=== PATIENT | female | born 1995 | race Caucasian/White ===

== ENCOUNTER 2024-05-09 17:00 | Outpatient (CLI) | payer OTHER ==
[2024-05-09 18:05] LABS: BILIRUBIN,URINE NEGATIVE (NEGATIVE); GLUCOSE, URINE (UA) NEGATIVE (NEGATIVE); KETONES,URINE (UA) NEGATIVE (NEGATIVE); LEUKOCYTE ESTERASE, URINE NEGATIVE (NEGATIVE); NITRITE,URINE NEGATIVE (NEGATIVE); OCCULT BLOOD,URINE NEGATIVE (NEGATIVE); PROTEIN,URINE NEGATIVE (NEGATIVE); UROBILINOGEN,URINE 0.2 (NORMAL) E.U./dL (NORMAL)
[2024-05-09 18:34] LABS: BACTERIA,URINE Rare /HPF (None Seen); CLARITY,URINE CLEAR (CLEAR); RBC,URINE None Seen /HPF (0-5); SQUAMOUS EPITHELIAL CELL,UR RARE Squamous (<= Few); WBC,URINE 0-3 /HPF (0-5)
== END 2024-05-09 17:01 | disposition home or self-care (01) ==
LOC: LAB.WC 17:00
PROVIDERS: ATTEND Nurse Practitioner Obstetrics & Gynecology
DX: Z34.90 Encounter for supervision of normal pregnancy, unspecified, unspecified trimester (principal)
CPT/HCPCS: 81001; 87086

== ENCOUNTER 2024-05-10 09:34 | Outpatient (CLI) | payer OTHER ==
[2024-05-10 11:56] LABS: BASOPHILS # (AUTO) 0.1 10^3/uL (0.0-0.1); BASOPHILS % (AUTO) 0.6 %; EOSINOPHILS # (AUTO) 0.1 10^3/uL (0.0-0.7); EOSINOPHILS % (AUTO) 1.1 %; HCT - HEMATOCRIT 41.6 % (37.0-47.0); HGB - HEMOGLOBIN 13.6 g/dL (12.0-16.0); LYMPHOCYTES # (AUTO) 1.8 10^3/uL (1.5-3.5); LYMPHOCYTES % (AUTO) 22.2 %; MEAN CORPUSCULAR HEMOGLOBIN 29.4 pg (27.0-31.0); MEAN CORPUSCULAR HGB CONC 32.7 g/dL (32.0-36.0); MEAN PLATELET VOLUME 10.3 fL (7.9-10.8); MONOCYTES # (AUTO) 0.5 10^3/uL (0.0-1.0); MONOCYTES % (AUTO) 6.5 %; NEUTROPHILS # (AUTO) 5.5 10^3/uL (1.5-6.6); NEUTROPHILS % (AUTO) 69.3 %; PLT - PLATELET COUNT 240 10^3/uL (130-450); RED BLOOD COUNT 4.62 10^6/uL (4.20-5.40); RED CELL DISTRIBUTION WIDTH 12.2 % (12.0-15.0); WHITE BLOOD COUNT 7.9 x10^3/uL (4.8-10.8)
[2024-05-11 01:08] LABS: HIV SCREEN 4TH GENERATION Non Reactive (Non Reactive)
[2024-05-11 03:11] LABS: HBsAG SCREEN Negative (Negative)
[2024-05-11 08:11] LABS: RPR Non Reactive (Non Reactive)
[2024-05-11 09:10] LABS: VARICELLA-ZOSTER AB IGG Reactive (Non Reactive)
[2024-05-11 23:08] LABS: HCV AB Non Reactive (Non Reactive)
== END 2024-05-10 09:35 | disposition home or self-care (01) ==
LOC: LAB.N 09:34
PROVIDERS: ATTEND Nurse Practitioner Obstetrics & Gynecology
DX: Z34.90 Encounter for supervision of normal pregnancy, unspecified, unspecified trimester (principal)
CPT/HCPCS: 36415; 85025; 86592; 86762; 86787; 86803; 86850; 86900; 86901; 87340; 87389

== ENCOUNTER 2024-12-20 07:45 | Inpatient (IN) ==
[2024-12-20] MEDS ORDERED: SODIUM CHLORIDE FLUSH 0.9% 10 ML SYRINGE IVP PRN (08:28)
[2024-12-20] MEDS ORDERED: OXYTOCIN/SODIUM CHLORIDE 500 ML IV PRN (08:28)
[2024-12-20] MEDS ORDERED: NIFEdipine 10 MG CAPSULE PO PRN (08:28)
[2024-12-20] MEDS ORDERED: hydrALAZINE INJ 20 MG/ML VIAL IVP PRN ×2 (08:28)
[2024-12-20] MEDS ORDERED: miSOPROStoL 200 MCG TABLET BC PRN (08:28)
[2024-12-20] MEDS ORDERED: CARBOPROST TROMETHAMINE 250 MCG/ML VIAL IM PRN (08:28)
[2024-12-20] MEDS ORDERED: OXYTOCIN 10 UNIT/ML VIAL IM PRN (08:28)
[2024-12-20] MEDS ORDERED: TRANEXAMIC ACID IN NACL 1,000 MG/100 ML BAG IV PRN (08:28)
[2024-12-20] MEDS ORDERED: LACTATED RINGERS 1,000 ML IV PRN (08:28)
[2024-12-20] MEDS ORDERED: LABETALOL 20 MG/4 ML SYRINGE IVP PRN ×3 (08:28)
[2024-12-20] MEDS ORDERED: METHYLERGONOVINE 0.2 MG/ML VIAL IM PRN (08:28)
--- NOTE | 2024-12-20 08:33 | HISTORY & PHYSICAL EXAMINATION ---
Admit History Smoking Status: Never smoker Other Maternal History Other Maternal History: HPI: This 29 yo @ 39+4 weeks by LMP and confirmed by 9+0 week ultrasound presents for elective induction of labor at term. Her was able to fly back from [facility] for the of their first baby and is now supportive at the bedside. Her cervix was checked in the clinic on Wednesday and she was closed/thick/high/posterior/soft/vertex/intact. She does not feel that she's been lee and declines repeat exam after utilization of shared decision making. RIZO SCORE:2. We reviewed management options at length, reviewed our plan of care is for admission for induction of labor to begin with pre-induction cervical ripening (50mcg BC q 4 hours). Reviewed that risks of labor include but are not limited to section, prolonged labor, vacuum extraction, episotomy, hemorrhage, and additional risks exist re: prolonged second stage related to extraction. Reviewed back up OBGYN (today Dr. Cody) is available for consultations, emergency interventions and transfer of care if indicted. She has been a patient of [facility] for the duration of her which has remained uncomplicated. 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 ROS: No Headache, visual changes or right upper quadrant abdominal pain. Denie s significant N/V. Denies urinary urgency or dysuria. All other symptoms reviewed and were negative except per HPI. In the event of an emergency, accepts the administration of blood products. Recent BP: 130/70 Labs: pending Last u/s EFW:08/15/2025 EFW 84% Total maternal weight gain: 42# OB Hx: G1: Current LMP: 03/18/2024 TERRY by LMP: 12/23/2024 US: 05/20/2024 @ 9.0wks c/w dating (TERRY by U/S 12/23/2024) Final TERRY: 12/23/2024 Medical Hx: Kidney Stone Surgical Hx: [place] teeth Social Hx: Monogamous with male partner (Balbir Mohsen Colin) Denies current use of alcohol or tobacco, marijuana or other recreational drugs. Reports that she is safe in current relationship. 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 [place] Allergies: NKDA RX PNV, Valacyclovair Blood type: O positive Antibody Screen: negative CBC: PLT 240 HCT 41.6 HGB 13.6 RUB: immune VZV: immune HBsAg: neg HepC: NR RPR: NR HIV: NR Flu: 06/06/2024 Covid: x3, declines booster PAP: GC/CT: neg HSV: denies in self and partner Genetic testing: NIPT Negative; AFP FAS: 08/14/2024 Placenta: anterior Cord: 3VC SHANNON: 12.2cm EFW: 474g 50gm OGCT: 91 3HR GTT: TDAP: 10/03/2024 Breast Pump: 10/03/2024 RSV: Antibody screen: CBC: PLT 211; 37.9/12.3 RPR: NR GBS: 12/04/2024 Negative Delivery plan: MOD: Anticipate PP BC: Physical exam: Normocephalic, atraumatic Lungs No increased work of breathing Abdomen gravid, soft, nontender. EFW 3700 FHR baseline 130, moderate variability, + accelerations, no decelerations Contractions irregular, soft resting tone SVE closed/thick/high/posterior/soft/intact/vertex Bilateral LE's no edema Mood is good. Assessment: 29 yo @ 39+4 weeks gestation by 9+0 wk U/S Elevtice induction of labor at term FHR 130 Cat I GBS NEG Plan: Admit to [facility] for preinduction cervical ripening. misoprostol 50mcg BC q 4 hours, up to 6 maximum doses Continuous monitoring. Intermittent monitoring as appropriate by unit policy Jacuzzi PRN. Nitrous oxide PRN. Epidural PRN Maternal Request. Anticipate . Meds/Allgy Home Medications Ambulatory Orders Medication Instructions Recorded Confirmed vits no.126-ferrous fum tab PO 06/06/2412/18 28 mg iron-folic acid 800 mcg tablet (Classic ) valacyclovir 500 mg tablet 500 mg PO BID 6 weeks #84 t abs 10/02/24 12/18/24 dicloxacillin 500 mg capsule 500 mg PO .four times per day 12/15/24 12/18/24 days #40 caps Allergies Allergies Allergy/AdvReac Type Severity Reaction Status Date / Time No Known Drug Allergies Allergy Verified 12/18/24 09:37 PFSH Active Problems All Active Problems (Updated 12/20/24 @ 08:29 by TERRI Rush) 39 weeks gestation of (Acute) HSV infection (Acute) Supervision of normal (Acute) Medical History Medical History (Updated 12/20/24 @ 08:29 by TERRI Rush) Family history of Down syndrome maternal great aunt Kidney stone Surgical History Surgical History (Updated 06/06/24 @ 11:05 by Megha Dickson MA) [place] teeth removed Family History Family History (Updated 06/06/24 @ 11:08 by Megha Dickson MA) Mother Thyroid disorder Sister Thyroid disorder Mother Basal cell carcinoma Father Basal cell carcinoma Social History Social History (Updated 06/06/24 @ 11:03 by Megha Dickson MA) Smoking Status: Never smoker Do you dip or chew tobacco?: No ETOH Use: None Substance Use: denies use Plan for Labor Plan For Labor I expect patient to be DC'd or transferred within 96 hours.: Yes
[2024-12-20 08:47] LABS: BASOPHILS % (AUTO) 0.4 %; EOSINOPHILS # (AUTO) 0.1 10^3/uL (0.0-0.7); EOSINOPHILS % (AUTO) 1.8 %; HCT - HEMATOCRIT 38.6 % (37.0-47.0); HGB - HEMOGLOBIN 12.9 g/dL (12.0-16.0); LYMPHOCYTES # (AUTO) 2.1 10^3/uL (1.5-3.5); LYMPHOCYTES % (AUTO) 27.1 %; MEAN CORPUSCULAR HEMOGLOBIN 29.1 pg (27.0-31.0); MEAN CORPUSCULAR HGB CONC 33.4 g/dL (32.0-36.0); MEAN CORPUSCULAR VOLUME 86.9 fL (81.0-99.0); MEAN PLATELET VOLUME 12.5 fL (7.9-10.8); MONOCYTES # (AUTO) 0.5 10^3/uL (0.0-1.0); MONOCYTES % (AUTO) 6.6 %; NEUTROPHILS % (AUTO) 63.7 %; PLT - PLATELET COUNT 184 10^3/uL (130-450); RED BLOOD COUNT 4.44 10^6/uL (4.20-5.40); RED CELL DISTRIBUTION WIDTH 13.7 % (12.0-15.0); WHITE BLOOD COUNT 7.9 x10^3/uL (4.8-10.8)
[2024-12-20] MEDS: miSOPROStoL 100 MCG TABLET BC SCH (08:49)
[2024-12-20] MEDS: SODIUM CHLORIDE FLUSH 0.9% 10 ML SYRINGE IVP SCH (09:00)
--- NOTE | 2024-12-20 13:18 | PHARMACY PROGRESS NOTE ---
Best Possible Medication History Admit Date and Time: 12/20/24 [id number] Home Medications Medication Instructions Recorded Confirmed Type vits no.126-ferrous fum 1 tab PO DAILY 12/20/24 History 28 mg iron-folic acid 800 mcg tablet (Classic ) valacyclovir 500 mg tablet 500 mg PO BID 6 weeks #84 t abs 10/02/24 12/20/24 Rx Processed by: Pharmacy Medications reviewed in ED?: No Medication History completed: Yes Patient Interview: Completed Secondary Source(s): Pharmacy records [facility] Statement: As the person ultimately responsible for medication therapy, providers are able to order a medication from an existing home medication list in [facility] via the "Reconcile Routine" prior to Confirmation of that medication by support technician. Such practice is discouraged except when the physician, in their clinical judgment, deems that a medical need exists for a medication without regard to previous use.
--- NOTE | 2024-12-20 18:53 | PROVIDER PROGRESS NOTE ---
Labor Progress Note Labor Progress Note Labor Progress Note/Additional Text: S: Talking through contractions but becoming more uncomfortable. Her is supportive at the bedside. O: FHR 130s, moderate variability SVE 1/thick/posterior/ vertex. A: 29yo @ 39+4wks gestation by 9wk U/S s/p misoprostol 50mcg BC x2 doses Contractions q 1.5-4 minutes, feeling them but able to talk through. GBS negative P: Hold next dose of misoprostol until contractions space out or feels less discomfort with contractions Consider next dose 25mcg vs 50mcg of misoprostol If minimal cervical change by tomorrow morning, consider CRB Continue to encourage ambulation as desired/tolerated Support her desire for pain intervention as desired.
--- NOTE | 2024-12-21 08:14 | PROVIDER PROGRESS NOTE ---
Labor Progress Note Labor Progress Note Labor Progress Note/Additional Text: S: Doing well, eating breakfast. Feeling tightening and cramping with contractions, but not specific pain. Overall, comfortable. Rating 3/10vps. supportive at bedside. O: FHR 125, moderate variability, + acclerations, no concerning decelerations S/P #5 dose of misoprostol. Dosage changed from 50mcg q 4 hours to 25mcg q 4 hours as contractions have been 2-4 minutes and palpate moderately. SVE 2/70/-3/mid/soft/vertex. A: 29yo @ 39+5 wks gestation by 9wk U/S Elective IOL at 39+4 wks gestation GBS negative P: give #6 dose of misprostol. Repeat SVE at noon, Consider CRB, membrane sweep and pitocin augmentation at next huddle at 1300.
[2024-12-21] MEDS: valACYclovir 500 MG TABLET PO SCH (08:39)
--- NOTE | 2024-12-21 13:27 | PROVIDER PROGRESS NOTE ---
Labor Progress Note Labor Progress Note Labor Progress Note/Additional Text: Doing well, overall comfortable. at bedside and well supported by RN team. Contractions q 2-5, moderate intensity. SVE 2.5/90/-2/mid/soft, membrane sweep, bulging bag of fluid. Discussed management options. Open to pitocin augme ntation. Discussed increased intensity of contractions with pitocin as well as pain management options. Pitocin augmentation per unit protocol with contraction frequency goal of q 2-3 minutes and increased intensity.
[2024-12-21] MEDS: LACTATED RINGERS 1,000 ML IV PRN (13:49)
[2024-12-21] MEDS: OXYTOCIN/SODIUM CHLORIDE 500 ML IV SCH (13:50)
[2024-12-21] MEDS ORDERED: ROPIVACAINE 0.2% 200 MG/100 ML BAG EP ONE (18:13)
--- NOTE | 2024-12-21 18:28 | PROVIDER PROGRESS NOTE ---
Labor Progress Note Labor Progress Note Labor Progress Note/Additional Text: S: Breathing and crying through contractions which have increased in intensity since initiating pitocin. Tearful, didn't want an epidural but after cervical exam, doesn't feel that she can tolerate labor for a further extended period of time. Reassured that she is doing excellent with her current breathing and movement through contractions. Extremely well supported by AMELIE Coelho. She requests an epidural for pain management and anesthesia has been notified. Her is supportive at the bedside and providing counter-pressure and ongoing encouragement and supportive of her wishes. O: FHR 130, moderate variability, SVE X, vertex. BP ranges from 103/68 - 140/79, mostly 120-130/70's Denies headache, changes to vision or RUQ pain. T 37.0 A: 29yo @ 39+5wks gestation by 9wk U/S Early labor, occasional coupling. RN has been working with her to do lunges and positional changes however with increasing discomfort, she has been less able to tolerate extreme positions for periods of time. 3.5/100/-2/soft/mid postition. Elective induction of labor at term GBS negative P: Anesthesia notified for placement of epidural for pain management. Contineu continuous monitoring now. Continue to titrate pitocin per unit protocol Will plan to release bag of water once comfortable with epidural. Will encouraged rotation in bed on peanut ball after patient is comfortable with epidural. Anticipate .
[2024-12-21] MEDS ORDERED: NALOXONE 0.4 MG/ML VIAL IVP PRN (19:15)
[2024-12-21] MEDS ORDERED: NALBUPHINE 10 MG/ML AMP IVP PRN (19:15)
[2024-12-21] MEDS ORDERED: diphenhydrAMINE INJ 50 MG/ML VIAL IVP PRN (19:15)
[2024-12-21] MEDS ORDERED: ePHEDrine 50 MG/ML VIAL IVP PRN (19:15)
[2024-12-21] MEDS ORDERED: METOCLOPRAMIDE 10 MG/2 ML VIAL IVP PRN (19:15)
--- NOTE | 2024-12-21 19:18 | ANESTHESIA PROCEDURE NOTE ---
Pre-Anesthesia VS, & Labs Diagnosis Surgical Diagnosis:: labor induction Procedure Procedure: labor epidural Vitals Vital Signs: Temp Pulse Resp BP Pulse Ox 37 C 72 16 121/80 99 12/21/24 07:11 12/21/24 07:11 12/21/24 07:11 12/21/24 07:11 12/21/24 07:11 NPO NPO: Other Is Patient ?: Yes Lab Results Current Lab Results: Laboratory Tests 12/20/24 09:13: Blood Type O POSITIVE, Antibody Screen NEGATIVE 12/20/24 08:30: WBC 7.9, RBC 4.44, Hgb 12.9, Hct 38.6, MCV 86.9, MCH 29.1, MCHC 33.4, RDW 13.7, Plt Count 184, MPV 12.5 H, Neut # (Auto) 5.0, Lymph # (Auto) 2.1, Powell # (Auto) 0.5, Eos # (Auto) 0.1, Baso # (Auto) 0.0, Absolute Nucleated RBC 0.00, Nucleated RBC % 0.0 12/20/24 08:30 Meds/Allgy Home Medications Ambulatory Orders Medication Instructions Recorded Confirmed vits no.126-ferrous fum 1 tab PO DAILY 12/20/24 28 mg iron-folic acid 800 mcg tablet (Classic ) valacyclovir 500 mg tablet 500 mg PO BID 6 weeks #84 t abs 10/02/24 12/20/24 Allergies Allergies Allergy/AdvReac Type Severity Reaction Status Date / Time No Known Drug Allergies Allergy Verified 12/18/24 09:37 PFSH Active Problems All Active Problems (Updated 12/20/24 @ 08:29 by TERRI Rush) 39 weeks gestation of (Acute) HSV infection (Acute) Supervision of normal (Acute) Medical History Medical History (Updated 12/20/24 @ 08:29 by TERRI Rush) Family history of Down syndrome maternal great aunt Kidney stone Surgical History Surgical History (Updated 06/06/24 @ 11:05 by Megha Dickson MA) [place] teeth removed Family History Family History (Updated 06/06/24 @ 11:08 by Megha Dickson MA) Mother Thyroid disorder Sister Thyroid disorder Mother Basal cell carcinoma Father Basal cell carcinoma Social History Social History (Updated 06/06/24 @ 11:03 by Megha Dickson MA) Smoking Status: Never smoker Do you dip or chew tobacco?: No ETOH Use: None Substance Use: denies use Anesthesia Exam (Expanded) Exam General: Alert, Oriented x3 and Moderate distress Dental: WNL Mouth Opening: Greater than 4 Fingerbreadths Neck Mobility: Normal Mallampati classification: II Thyromental Distance: greater than 6 cm Respiratory: Lungs clear Cardiovascular: Regular rate Plan Plan Anesthesia Type: Epidural Consent for Procedure(s) Verified and Reviewed: Yes Code Status: Attempt Resuscitation ASA Classification ASA classification: 2-Mild systemic disease Is this case an emergency?: No
[2024-12-22] MEDS: ONDANSETRON 4 MG/2 ML VIAL IVP PRN (00:18)
[2024-12-22] MEDS: LACTATED RINGERS 500 ML IV ONE (00:43)
[2024-12-22] MEDS: ROPIVACAINE 0.2% 200 MG/100 ML BAG EP PRN (02:08)
[2024-12-22] MEDS ORDERED: MINERAL OIL LIGHT 10 ML ONE (05:12)
[2024-12-22] MEDS: MINERAL OIL LIGHT 10 ML MC ONE (05:15)
[2024-12-22] MEDS ORDERED: fentaNYL 100 MCG/2 ML VIAL ONE (06:40)
[2024-12-22] MEDS: lidocaine 1% 20 ML MDV ID PRN (06:46)
[2024-12-22] MEDS: fentaNYL 100 MCG/2 ML VIAL IVP PRN (06:47)
[2024-12-22] MEDS ORDERED: LABETALOL 20 MG/4 ML SYRINGE IVP PRN ×2 (07:31)
[2024-12-22] MEDS ORDERED: NALOXONE 0.4 MG/ML VIAL IVP PRN (07:31)
[2024-12-22] MEDS ORDERED: LABETALOL 5 MG/1 ML 20 ML MDV IVP PRN (07:31)
[2024-12-22] MEDS ORDERED: hydrALAZINE INJ 20 MG/ML VIAL IVP PRN ×2 (07:31)
[2024-12-22] MEDS ORDERED: NIFEdipine 10 MG CAPSULE PO PRN (07:31)
[2024-12-22] MEDS ORDERED: OXYTOCIN/SODIUM CHLORIDE 500 ML IV PRN (07:31)
[2024-12-22] MEDS ORDERED: SIMETHICONE CHEW 80 MG TABLET PO PRN (07:31)
--- NOTE | 2024-12-22 07:31 | DELIVERY NOTE ---
Delivery Note Delivery Comments (Free Text/Narrative) Delivery Comments (Free Text/Narrative): This 29 -year-old, @ 39+4 weeks gestation by 9 week ultrasound/ LMP presented 12/20/2024 @ 0800 for elective term induction of labor. Cervix was 1cm/thick/high/soft/posterior/Vertex presentation by exam. GBS negative. Misoprostol x6 doses and pitocin maximum infusion of 14mu/min. FHR pattern demonstrated 135-145 baseline in a category I prior to second stage. Normal labor course. Epidural placed upon maternal request. SROM upon SVE 12/21/2024 @ 1917. She then progressed to complete/complete 12/22/2024 @ 0419 and ready to deliver. Just prior to pushing onset epidural catheter was found to be broken off at the filter, anesthesia aware. She had decreasing epidural coverage as pushing progreassed. Second stage began @ 0450. : Normal spontaneous vaginal delivery of a viable female infant on 12/22/2024 @ 0620. No nuchal cord. The was placed on maternal abdomen, stimulated, dried and placed skin to skin. Apgars 8 & 9 @ 1 & 5 minutes. The umbilical cord was allowed to stop pulsating at which time it was doubly clamped by delivering provider and cut by FOB. 3VC. Cord blood was obtained. Fundal massage and gently cord traction applied for active management of the third stage, placenta delivered spontaneously and intact and appeared normal @ 0631. EBL 150cc. Placenta was not sent to pathology. Pitocin administered via IV for hemostasis and allowed to run freely. Uterine massage was performed until uterus was deemed firm. weight pending at this time. Inspection of the perineum noted an first-degree midline laceration with an extension to midvaginal vault. The laceration was repaired under epidural anesthesia and topical 1% lidocaine with running 3-0 vicryl rapide, repaired in standards fashion under sterile conditions. Upon re-inspection the patient was hemostatic. Uterus again massaged and found to be firm. Needle and sponge counts were correct. Uterine fundus firm and there is no excessive bleeding. Tissues well approximated. Skin to skin initiated. Family bonding well. Both mother and baby are in stable condition.
[2024-12-22] MEDS: ACETAMINOPHEN 500 MG TABLET PO PRN (08:00)
[2024-12-22] MEDS: IBUPROFEN 600 MG TABLET PO PRN (08:01)
[2024-12-22] MEDS: DOCUSATE SODIUM 100 MG CAPSULE PO SCH (23:03)
--- NOTE | 2024-12-23 11:34 | PROVIDER PROGRESS NOTE ---
Subjective Subjective Subjective: S: Bonding well with baby. without difficulty. Bleeding decreased and is light. Pain is well controlled with oral medications. She is urinating without difficulty. Had a normal BM without pain. is supportive at the bedside. O: Heart RRR w/o M/G/R, lungs CTAB, abdomen soft and nontender with fundus firm at U, perineum intact, light lochia rubra, bilateral LE's trace edema A: 29yo -->P1 PPD#1 s/p TSVD viable female Normal recovery P: Continue routine care and medications. Evaluate for discharge home tomorrow Current Medications Current Medications Current Medications: Current Medications Generic Name Dose Route Start Last Admin Trade Name Freq PRN Reason Stop Dose Admin Acetaminophen 1,000 mg 12/22/24 07:31 12/23/24 10:23 Acetaminophen 500 Mg Tablet PO 1,000 mg Q8HR PRN Administration Mild Pain or Fever>38C(100.4F) Carboprost Tromethamine 250 mcg 12/20/24 08:28 Carboprost Tromethamine 250 Mcg/Ml Vial IM 12/25/24 08:29 Q15M PRN Step 4: Hemorrhage protocol Diphenhydramine HCl 12.5 - 25 mg 12/21/24 19:15 Diphenhydramine Inj 50 Mg/Ml Vial IVP Q6HR PRN ITCHING Docusate Sodium 100 mg 12/22/24 09:00 12/23/24 10:24 Docusate Sodium 100 Mg Capsule PO 100 mg BID STEPHANIE Administration Fentanyl 50 mcg 12/22/24 06:48 12/22/24 06:47 Fentanyl 100 Mcg/2 Ml Vial IVP 50 mcg Q1HR PRN Administration Severe Pain (Level 7-10) Hydralazine HCl 5 - 20 mg 12/20/24 08:28 Hydralazine Inj 20 Mg/Ml Vial IVP Q20M PRN SBP >160 or DBP >110 Protocol Hydralazine HCl 10 mg 12/20/24 08:28 Hydralazine Inj 20 Mg/Ml Vial IVP 12/25/24 08:29 .ONCE PRN Step 9 of Labetalol protocol Protocol Hydralazine HCl 10 mg 12/22/24 07:31 Hydralazine Inj 20 Mg/Ml Vial IVP .ONCE PRN SBP> or= 160 OR DBP> or= 110 Protocol Hydralazine HCl 5 - 10 mg 12/22/24 07:31 Hydralazine Inj 20 Mg/Ml Vial IVP Q20M PRN SBP >=160 and/or DBP >=110 Protocol Lactated Ringer's 1,000 mls @ 100 mls/hr 12/20/24 08:28 12/21/24 19:01 Lr IV 100 mls/hr .Q10H PRN Administration Save for active labor Oxytocin/Sodium Chloride 500 mls @ 999 mls/hr 12/20/24 08:28 Pitocin/Sodium Chloride IV 12/25/24 08:29 PRN PRN POST- HEMORR PREVENTION Protocol 999 MILLIUNIT/MIN Tranexamic Acid 1,000 mg in 100 mls @ 600 mls/hr 12/20/24 08:28 Tranexamic 1,000 Mg/100ml-Nacl IV 12/25/24 08:29 .ONCE PRN EBL >1200mL and within 3hr Lactated Ringer's 1,000 mls @ 999 mls/hr 12/20/24 08:28 Lr IV PRN PRN distress Oxytocin/Sodium Chloride 500 mls @ 999 mls/hr 12/22/24 07:31 Pitocin/Sodium Chloride IV PRN PRN POST- HEMORR PREVENTION Protocol 999 MILLIUNIT/MIN Ibuprofen 600 mg 12/22/24 07:31 12/23/24 02:39 Ibuprofen 600 Mg Tablet PO 600 mg Q6HR PRN Administration Moderate Pain (Level 4-6) Labetalol HCl 20 - 80 mg 12/20/24 08:28 Labetalol 20 Mg/4 Ml Syringe IVP Q10M PRN SBP >160 or DBP >110 Protocol Labetalol HCl 20 mg 12/20/24 08:28 Labetalol 20 Mg/4 Ml Syringe IVP 12/25/24 08:29 .ONCE PRN Step 9 of nifedipine protocol Protocol Labetalol HCl 40 mg 12/20/24 08:28 Labetalol 20 Mg/4 Ml Syringe IVP 12/25/24 08:29 .ONCE PRN Step 9 of hydrALAZine protocol Protocol Labetalol HCl 20 - 80 mg 12/22/24 07:31 Labetalol 5 Mg/1 Ml 20 Ml Mdv IVP Q10M PRN SBP> or= 160 OR DBP> or= 110 Protocol Labetalol HCl 20 - 40 mg 12/22/24 07:31 Labetalol 20 Mg/4 Ml Syringe IVP Q10M PRN SBP> or= 160 OR DBP> or= 110 Protocol Labetalol HCl 20 mg 12/22/24 07:31 Labetalol 20 Mg/4 Ml Syringe IVP .ONCE PRN SBP >=160 and/or DBP >=110 Protocol Lidocaine HCl 20 ml 12/20/24 08:28 12/22/24 06:46 Lidocaine 1% 20 Ml Mdv ID 12/25/24 08:29 20 ml .ONCE PRN Administration PERINEAL REPAIR Methylergonovine Maleate 0.2 mg 12/20/24 08:28 Methylergonovine 0.2 Mg/Ml Vial IM 12/25/24 08:29 .ONCE PRN Step 2: Hemorrhage protocol Metoclopramide HCl 10 mg 12/21/24 19:15 Metoclopramide 10 Mg/2 Ml Vial IVP Q6HR PRN Nausea / Vomiting Misoprostol 800 mcg 12/20/24 08:28 Misoprostol 200 Mcg Tablet BC 12/25/24 08:29 .ONCE PRN Step 3: Hemorrhage protocol Nalbuphine HCl 2.5 - 5 mg 12/21/24 19:15 Nalbuphine 10 Mg/Ml Amp IVP Q4H PRN ITCHING Naloxone HCl 0.1 mg 12/21/24 19:15 Naloxone 0.4 Mg/Ml Vial IVP Q2M PRN RR<8 Naloxone HCl 0.4 mg 12/22/24 07:31 Naloxone 0.4 Mg/Ml Vial IVP .ONCE PRN Opioid Overdose Nifedipine 10 - 20 mg 12/20/24 08:28 Nifedipine 10 Mg Capsule PO Q20M PRN SBP >160 or DBP >110 Protocol Nifedipine 10 - 20 mg 12/22/24 07:31 Nifedipine 10 Mg Capsule PO Q20M PRN SBP >=160 and/or DBP >=110 Protocol Ondansetron HCl 4 mg 12/21/24 19:15 12/22/24 00:18 Ondansetron 4 Mg/2 Ml Vial IVP 4 mg Q6HR PRN Administration Nausea / Vomiting Oxytocin 10 unit 12/20/24 08:28 Oxytocin 10 Unit/Ml Vial IM 12/25/24 08:29 .ONCE PRN Step one: If no IV access Simethicone 80 mg 12/22/24 07:31 Simethicone Chew 80 Mg Tablet PO TID PRN Gas Sodium Chloride 10 ml 12/20/24 09:00 12/22/24 00:44 Sodium Chloride Flush 0.9% 10 Ml Syringe IVP Not Given 0100,0900,1700 STEPHANIE Sodium Chloride 10 ml 12/20/24 08:28 Sodium Chloride Flush 0.9% 10 Ml Syringe IVP PRN PRN NEEDED PER PROVIDER ORDERS Objective Vital Signs/Intake & Output Vital Signs: Vital Signs x48h Pulse BP 12/23/24 05:17 71 120/71 Intake & Output: Intake & Output 12/20/24 12/21/24 12/22/24 12/23/24 23:59 23:59 23:59 23:59 Intake Total 1100 / 1100 734 / 734 486 / 486 Output Total 600 / 600 Balance 1100 / 1100 734 / 734 -114 / -114 Weight (kg) 190 lb 0.016 oz Lab Results 12/20/24 08:30
[2024-12-24 08:42] VITALS: BP 134/78; TEMP 98.2; O2SAT 98
--- NOTE | 2024-12-24 11:15 | Discharge Summary ---
Discharge Summary HOSPITAL COURSE Hospital Course: Date of Admission: 12/20/2024 Date of Discharge: 12/24/2024 Diagnosis on Admission: 1. 29 yo @ 39+4 weeks gestation by 9+0 wk U/S 2. Elective induction of labor at term 3. FHR 130 Cat I 4. GBS NEG Diagnosis on Discharge: 1. 29yo PPD#2 s/p TSVD viable female infant 2. 3. Normal recovery Brief History: She is a patient of [facility] who presented on for elective induction of labor. Cervix was 1/thick/high and vertex with intact membranes. She recieved 6 doses of 25mcg BC misoprostol for pre-induction cervical ripening followed by pitocin for induciton of labor with a maximum infusion rate of 14mU/min. Epidural was placed per maternal request. SROM occurred on 12/21/2024 @ 1917 and was noted to be a moderate amount of clear fluid. She spontaneously progressed to deliver a viable female infant on 12/22/2024 @ 0620. Perineum was found to have a 1st degree laceration which was repaired using a 3-[address]-1 needle in standard fashion and under sterile conditions. Apgars were 8/9 at 1 and 5 minutes respectively. EBL 150 mL. She has been doing well in her course. She is ambulating and tolerating a regular diet. She is urinating without difficulty and her lochia is normal. Her pain is well controlled with oral medications. She will be discharged home today on day #2 with instructions to continue taking her vitamin while and to continue taking Ibuprofen and Tylenol over the counter as needed for pain management. She intends to follow up with myself at [facility] in 1 week for routine visit or sooner if needed. She has been given precautions to call if she has any worsening fevers, chills, abdominal pain, increased vaginal bleeding or foul smelling vaginal lochia. Physical Exam: Normocephalic, atraumatic. Heart RRR w/o M/G/R, lungs CTAB, abdomen soft and nontender with fundus firm at U-2, perineum intact, light lochia rubra, bilateral LE's no edema. Mood is good. ALLERGIES Allergies Allergy/AdvReac Type Severity Reaction Status Date / Time No Known Drug Allergies Allergy Verified 12/18/24 09:37 MEDICATIONS Ambulatory Orders Medication Instructions Recorded Confirmed vits no.126-ferrous fum 1 tab PO DAILY 12/20/24 28 mg iron-folic acid 800 mcg tablet (Classic ) valacyclovir 500 mg tablet 500 mg PO BID 6 weeks #84 t abs 10/02/24 12/20/24 PHYSICAL EXAM AT DISCHARGE Vital Signs: Vital Signs x48h Temp Pulse Resp BP Pulse Ox 12/24/24 08:30 98.2 F 74 17 134/78 H 98 LABS 12/20/24 08:30 Discharge Plan Discharge Patient Disposition: 01 Home, Self Care Prescriptions: Continued valacyclovir 500 mg tablet 500 mg PO BID 42 Days Qty: 84 1RF Rx Instructions: Take twice a day for HSV suppression in Classic 28 mg iron- 800 mcg tablet 1 tab PO DAILY Print Language: Thai Patient Instructions: Vaginal After, Self Care
--- NOTE | 2024-12-24 12:18 | Labor Flowsheet ---
Labor Flowsheet Datetime Report Generated by CPN: 12/24/2024 12:18 Datetime: 12/24/2024 08:20 VITAL SIGNS NBP Sys/Swathi/Mean (mmHg): 134 : 78 : 91 Pulse: 72 Datetime: 12/22/2024 08:30 Stage of : Recovery Datetime: 12/22/2024 08:00 Temperature (C): 37.1 Datetime: 12/22/2024 07:15 Respirations: 20 Datetime: 12/22/2024 07:00 PAIN Pain Scale: 3 Pain Presence: Intermittent Pain Type: Cramping Pain Location: Abdomen; Perineum Pain Goal: 4 Pain Relief Measures: Pain Medication Given; Comfort Measures Datetime: 12/22/2024 06:31 Stage 2 Comments: Placenta @ 0631 Datetime: 12/22/2024 06:20 STAGE 2 Pushing: Coached on Pushing; Urge to Push Pushing Position: Pushing with Contractions; Pushing Lithotomy Pushing Progress: Descent with Pushing; with Pushing; Pushing Effectively with Contractions Datetime: 12/22/2024 06:17 UTERINE ACTIVITY Monitor Mode: External Frequency (min): 1-2 Quality: Strong Duration (sec): 50-70 Pattern: Normal: <= 5 Contractions in 10 Minutes Resting Tone (Palpate): Relaxed FHR Baseline Rate : 150 Variability: Moderate 6-25 bpm Accelerations: 15X15 Decelerations: Variable Category: Category II Datetime: 12/22/2024 06:00 ASSESSMENT A Monitor Mode: Telemetry LaborFlag: Labor Datetime: 12/22/2024 05:50 Membranes Ruptured Date/Time: 12/21/2024 19:17 Amniotic Fluid Odor: Normal Cervical Ripening Agents: Cytotec @ Datetime: 12/22/2024 04:46 Communication Comments: pushing starts Datetime: 12/22/2024 04:40 Anesthesia Comments: Noticed that epidural line got snapped off. Pt unaware. [employer] called, stated no way to fix other than to replace. pt 10cm and ready to push. Epidural removed. Datetime: 12/22/2024 04:19 VAGINAL EXAM Dilatation (cm): 10.0 Effacement (%): 100 Station: 2 Exam by: Lauren RN Datetime: 12/22/2024 03:09 SpO2 (%): 98 Datetime: 12/22/2024 03:00 Temperature Route: Oral FHR Baseline Changes: No Baseline Change Datetime: 12/22/2024 02:00 Pitocin Checklist: At Least 1 Acceleration of 15 bpm x 15 Seconds in 30 Minutes or Adequate Variability; No More than 1 Late Deceleration Occurred in Past 30 Minutes; No More than 2 Variable Decelerations > 60 Seconds in Duration and decreasing >60 bpm in 30 minutes; No More than 5 Uterine Contractions in 10 Minutes for any 20 Minute Interval; Uterus Palpates Soft between Contractions Datetime: 12/21/2024 23:37 Patient Care Comments: Pt had copious amount of emesis on self and in bed. complete bedding change and got pt washed up and clothes changed. zofran administered Datetime: 12/21/2024 19:35 I/O Interventions: Yang Cath Inserted Datetime: 12/21/2024 19:17 Membrane Status: Ruptured Membranes Rupture Method: Spontaneous Amniotic Fluid Color: Clear Amniotic Fluid Amount: Moderate Datetime: 12/21/2024 18:34 PATIENT CARE Patient Position/Activity: Left Tilt Datetime: 12/21/2024 18:25 ANESTHESIA Anesthesia Plans: Epidural Datetime: 12/21/2024 18:24 Epidural Procedure: Cath Placed Datetime: 12/21/2024 18:20 PROCEDURE TIME OUT Procedure Verify: Accurate Procedure Consent Form; Agreement on Procedure to be Done; Correct Patient Position Epidural Positioning: Sitting Datetime: 12/21/2024 18:00 Monitor Interventions for UA: Ayden Adjusted Datetime: 12/21/2024 17:50 Cervix, Consistency: Soft Cervix, Position: Midposition Datetime: 12/21/2024 16:26 MEDICATIONS Pitocin (milliunits): Increased to @ 5 Datetime: 12/21/2024 15:36 COMMUNICATION Communication: RN at Bedside Datetime: 12/21/2024 15:24 Monitor Interventions for FHR: Ultrasound Adjusted Datetime: 12/21/2024 13:31 Pain Coping: Breathing Through Contractions; Declines Medication or Epidural Comfort Measures: Breathing/Relaxation; Family Support Datetime: 12/21/2024 12:59 Vaginal Bleeding: Normal Show Vaginal Exam Comments: buldgy bag Datetime: 12/21/2024 11:00 MATERNAL ASSESSMENT Level of Consciousness: Alert Headache: Denies Nausea/Vomiting: Denies RUQ Epigastric Pain: Denies Datetime: 12/21/2024 10:53 Vital Sign Comments: PT states uterine ctx during blood pressure, will re- check within 1 hour.
== END 2024-12-24 12:00 | disposition home or self-care (01) | DRG 806 ==
LOC: WFO 07:45 → FBP 07:51
PROVIDERS: ADMIT Nurse Practitioner; ATTEND Nurse Practitioner
DX: Z37.0 Single live birth; O98.52 Other viral diseases complicating childbirth; O70.0 First degree perineal laceration during delivery; Z3A.39 39 weeks gestation of pregnancy; B00.1 Herpesviral vesicular dermatitis; Z79.899 Other long term (current) drug therapy